=== PATIENT | female | born 1945 | race Caucasian/White ===

== ENCOUNTER → 2017-08-27 11:48 | Outpatient (CLI) | payer MEDICARE, SELFPAY ==
--- NOTE | 2017-08-27 11:58 | CT_ITS ---
STUDY: CT CHEST WITH CONTRAST REASON FOR EXAM: Female, 72 years old. Lung, breast cancer RADIATION DOSAGE (If Supplied By Facility): CTDIvol = ( 13.09 ) mGy, DLP = ( 477.10 ) mGycm TECHNIQUE: Transaxial imaging was performed following intravenous administration of 100 ml of Isovue 300 contrast material. Multiplanar coronal and sagittal images were reformatted. Individualized dose optimization techniques were used for this CT. COMPARISON: January 27, 2017 CT scan chest FINDINGS: The thyroid is enlarged and inhomogeneous similar to prior study. There is trace lower lobe atelectasis. There is no evidence of focal consolidation pleural effusion pulmonary edema and pneumothorax. There is no demonstrated pleural abnormality. Normal heart and pericardium. There is a cluster of small lymph nodes to the right of the trachea measuring up to 6.4 mm stable since prior study. Normal hilar regions. Normal enhanced pulmonary arteries. Normal aorta arch and descending thoracic aorta. There is increased kyphosis. There is degenerative change in the lumbar spine. There is postoperative change in the right breast soft tissues with surgical clips. There is surgical material in the left breast. There is similar appearing breast asymmetry. There is mild skin thickening similar to prior study. There is no demonstrated abnormality of the visualized upper abdomen. CT/Chest WITH Contrast IMPRESSION: No evidence of acute focal infiltrate or newly visualized mass. Enlarged inhomogeneous stable thyroid gland recommend follow-up thyroid ultrasound when appropriate. Kyphosis degenerative change of the thoracolumbar spine. Electronically Signed: Romi Shipman MD at 22:53 EST Tel , Service support ,
[2017-08-27 12:42] LABS: Absolute Lymphocyte Count 1.46 X10^3/ul (0.83-4.51); Absolute Neutrophil Count 2.6 X10^3/uL (2.0-7.7); Basophil# 0.01 X10^3/uL; Basophil% 0.2 % (0-1); Eosinophil# 0.05 X10^3/uL; Eosinophils% 1.1 % (0-5); Hemoglobin 13.1 g/dl (12.0-15.0); Lymphocyte # 1.46 X10^3/ul (4.0); Lymphocyte % 32.2 % (19-41); Mean Corpuscular Hgb 29.2 pg (27.0-32.0); Mean Corpuscular Volume 91.5 fL (81-99); Mean Platelet Vol. 10.7 fl (6.2-12.0); Monocyte# 0.39 X10^3/uL; Monocyte% 8.6 % (0-10); Neutrophil # 2.61 X10^3/uL (2.7-7.7); Neutrophil % 57.7 % (47-70); Platelet Count 206 K/mm3 (150-450); RBC Distribution Width CV 13.2 % (11.6-14.6); Red Blood Count 4.48 M/mm3 (4.2-5.4); White Blood Count 4.5 K/mm3 (4.4-11.0)
[2017-08-27 12:43] LABS: POSITIVE COUNT NO; POSITIVE DIFFERENTIAL NO; POSITIVE MORPHOLOGY NO
[2017-08-27 13:00] LABS: ALB/GLOB Ratio 0.9 RATIO (0.9-2.4); AST(SGOT) 16 U/L (15-37); Alanine Aminotransfer ALT/SGPT 23 U/L (12-78); Albumin, Serum 3.6 g/dL (3.4-5.0); Alkaline Phosphatase 96 U/L (45-117); Anion Gap 8 (5-15); BUN 22 mg/dL (7-18); BUN/Creat Ratio 34.4 RATIO (10-20); Calcium,Total 9.2 mg/dL (8.5-10.1); Chloride 106 mmol/L (98-107); Creatinine, Serum 0.64 mg/dL (0.55-1.02); EST Glomerular Filtration Rate 98 mL/min (>60); Est Glom Filt Rate - Afr Amer 118 mL/min (>60); Globulin 3.9 g/dL (2.2-4.2); Glucose 90 mg/dL (70-110); LDH 170 U/L (84-246); Potassium 4.1 mmol/L (3.5-5.1); Protein, Total 7.5 g/dL (6.4-8.2); Sodium Level 141 mmol/L (136-145)
== END ==
LOC: CT 11:50 → MEDOUTP 11:52
PROVIDERS: Family Provider Family Medicine; PCP Family Medicine; Visit Provider Internal Medicine Medical Oncology
DX: C50.411 Malignant neoplasm of upper-outer quadrant of right female breast (principal); C78.00 Secondary malignant neoplasm of unspecified lung
CPT/HCPCS: 71260; 80053; 83615; 85025; Q9967; A4216

== ENCOUNTER → 2017-08-30 14:16 | Outpatient (CLI) | payer MEDICARE, SELFPAY ==
--- NOTE | 2017-08-30 14:19 | RAD_ITS ---
STUDY: X-RAY - RIGHT KNEE REASON FOR EXAM: Female, 72 years old. Severe knee pain. Metastatic breast cancer. TECHNIQUE: 4 view(s) of the knee. COMPARISON: None. FINDINGS: Alignment is normal. No fracture or dislocation. Small marginal osteophytes medial compartment and posterior margin of the patella. No joint effusion. The soft tissue structures are unremarkable. RAD/Knee 4 or More Views IMPRESSION: Mild degenerative changes of the knee. Electronically Signed: Froylan Dent MD at 7:00 EST , Service support ,
--- NOTE | 2017-08-30 14:19 | RAD_ITS ---
STUDY: X-RAY - RIGHT FEMUR REASON FOR STUDY: Female, 72 years old. Severe knee pain. Metastatic breast cancer. TECHNIQUE: Radiological exam, femur, 4 images obtained. COMPARISON: None. FINDINGS: Alignment is normal. No fracture or dislocation. Marginal osteophytes medial compartment of the knee. Soft tissues unremarkable. RAD/Femur Min 2 Views IMPRESSION: No acute findings in the femur. Degenerative changes of the knee. Electronically Signed: Froylan Dent MD at 6:58 EST , Service support ,
== END ==
PROVIDERS: Family Provider Family Medicine; PCP Family Medicine; Visit Provider Family Medicine
DX: M25.561 Pain in right knee (principal)
CPT/HCPCS: 73552; 73564

== ENCOUNTER → 2018-03-07 | Outpatient (CLI) | payer MEDICARE, SELFPAY ==
[2017-09-09 13:03] VITALS: BP 129/77; BMI 32.2
--- NOTE | 2018-03-07 08:00 | CT_ITS ---
STUDY: CT CHEST WITH CONTRAST REASON FOR EXAM: Female, 72 years old. Malignant neoplasm. Bilateral breast cancer. RADIATION DOSAGE (If Supplied By Facility): CTDIvol = ( 11.38 ) mGy, DLP = ( 361.30 ) mGycm TECHNIQUE: Transaxial imaging was performed following intravenous administration of 100 ml of Isovue 300 contrast material. Multiplanar coronal and sagittal images were reformatted. Individualized dose optimization techniques were used for this CT. COMPARISON: August 27, 2017. FINDINGS: There is a right-sided Port-A-Cath. The lungs are hyperexpanded. There are scattered blebs. There is no mass or infiltrate. There is a minimal focus of pleural thickening and calcification seen laterally in the right upper lobe. Normal heart and pericardium. There are calcifications of the coronary arteries. There is mediastinal lymphadenopathy. The largest node in the precarinal space 1.8 x 1.3 x 1.4 cm. There is a mass in the posterior left hilum adjacent to the descending thoracic aorta, measuring 1.2 x 1.3 x 1.1 cm. Normal enhanced pulmonary arteries. There is mild atherosclerotic tortuosity of the thoracic aorta without aneurysm or dissection. Stable degenerative changes of the thoracic spine. There is no evidence of lytic or blastic lesion. There are surgical clips in both breast tissues with evidence of scarring. Again seen with enlarged thyroid with multiple hypodensities. There is no demonstrated abnormality of the visualized upper abdomen. CT/Chest WITH Contrast IMPRESSION: 1. No evidence of new pulmonary infiltrate or mass. 2. Stable mediastinal and left hilar lymphadenopathy. 3. No major change in findings when compared to the prior study. Electronically Signed: Mesfin Gaona DO at 19:01 EDT Tel [phone], Service support ,
[2018-03-07 08:10] LABS: CREATININE FINGERSTICK 0.9 mg/dL (0.55-1.02)
--- NOTE | 2018-03-07 08:45 | NURSING ---
ATTEMPTED TO DRAW OUTPATIENT LABS OFF OF PATIENT'S PORT, BUT UNABLE TO GET ENOUGH BLOOD RETURN EVEN AFTER SEVERAL FLUSHES.
[2018-03-07 09:02] LABS: Absolute Lymphocyte Count 1.16 X10^3/ul (0.83-4.51); Absolute Neutrophil Count 2.1 X10^3/uL (2.0-7.7); Basophil# 0.01 X10^3/uL; Basophil% 0.3 % (0-1); Eosinophil# 0.04 X10^3/uL; Eosinophils% 1.1 % (0-5); Hematocrit 40.6 % (37-47); Hemoglobin 12.9 g/dl (12.0-15.0); Lymphocyte # 1.16 X10^3/ul (4.0); Lymphocyte % 32.4 % (19-41); Mean Corp Hgb Conc 31.8 g/gl (32-36); Mean Corpuscular Hgb 29.3 pg (27.0-32.0); Mean Corpuscular Volume 92.1 fL (81-99); Mean Platelet Vol. 10.7 fl (6.2-12.0); Monocyte# 0.23 X10^3/uL; Monocyte% 6.4 % (0-10); Neutrophil # 2.14 X10^3/uL (2.7-7.7); Neutrophil % 59.8 % (47-70); Platelet Count 178 K/mm3 (150-450); RBC Distribution Width CV 13.1 % (11.6-14.6); RBC Distribution Width SD 44.2 fl (35.1-43.9); Red Blood Count 4.41 M/mm3 (4.2-5.4); White Blood Count 3.6 K/mm3 (4.4-11.0)
[2018-03-07 09:07] LABS: POSITIVE COUNT NO; POSITIVE DIFFERENTIAL NO; POSITIVE MORPHOLOGY NO
[2018-03-07 09:28] LABS: AST(SGOT) 18 U/L (15-37); Alanine Aminotransfer ALT/SGPT 17 U/L (13-56); Albumin, Serum 3.6 g/dL (3.2-5.0); Alkaline Phosphatase 87 U/L (45-117); Anion Gap 9 (5-15); BUN 24 mg/dL (7-18); BUN/Creat Ratio 30.6 RATIO (10-20); Calcium,Total 8.9 mg/dL (8.5-10.1); Chloride 105 mmol/L (98-107); Creatinine, Serum 0.78 mg/dL (0.55-1.02); EST Glomerular Filtration Rate 77 mL/min (>60); Est Glom Filt Rate - Afr Amer 93 mL/min (>60); Globulin 3.5 g/dL (2.2-4.2); Glucose 73 mg/dL (74-106); Potassium 3.9 mmol/L (3.5-5.1); Protein, Total 7.1 g/dL (6.4-8.2); Sodium Level 143 mmol/L (136-145); Thyroid Stim Hormone (TSH) 2.29 uIU/mL (0.358-3.74)
[2018-03-07 16:40] LABS: Xtra Tube EP Lab EXTRA TUBE
== END | disposition home or self-care (01) ==
PROVIDERS: Family Provider Family Medicine; PCP Family Medicine; Visit Provider Internal Medicine Medical Oncology
DX: C50.411 Malignant neoplasm of upper-outer quadrant of right female breast (principal); C50.912 Malignant neoplasm of unspecified site of left female breast; C78.00 Secondary malignant neoplasm of unspecified lung
CPT/HCPCS: 71260; 80053; 84443; 85025; Q9967; A4216

== ENCOUNTER → 2018-08-29 07:46 | Outpatient (CLI) | payer MEDICARE, SELFPAY ==
[2018-03-10 13:18] VITALS: BMI 30.7
--- NOTE | 2018-08-29 07:58 | CT_ITS ---
STUDY: CT CHEST WITH CONTRAST REASON FOR EXAM: Female, 73 years old. Breast cancer RADIATION DOSAGE (If Supplied By Facility): CTDIvol = ( 11.06 ) mGy, DLP = ( 322.14 ) mGycm TECHNIQUE: Transaxial imaging was performed following intravenous administration of 100 ml of Isovue 300 contrast material. Multiplanar coronal and sagittal images were reformatted. Individualized dose optimization techniques were used for this CT. COMPARISON: March 07, 2018. FINDINGS: There is port on the right extending to the superior vena cava. The thyroid gland is enlarged with multiple nodules. There is left upper lung granuloma. There is a noncalcified 0.3 cm left upper lobe nodule, series 4 image 33/124. There is 1.4 cm left hilar lymph node. There is no demonstrated pleural abnormality. There are calcifications of the coronary arteries. There is right lower paratracheal lymph node measuring 1.8 cm. There is AP window lymph node measuring 0.8 cm. Normal enhanced pulmonary arteries. There is atherosclerotic calcification of the aortic arch with tortuosity and elongation of the aortic arch and descending thoracic aorta. There are multi-level degenerative changes of the thoracic spine. There are healed left anterior rib fractures. There is postoperative change of the left breast. There is no demonstrated abnormality of the visualized upper abdomen. CT/Chest WITH Contrast IMPRESSION: Small left upper lobe nodule. Stable left upper lung granuloma. Stable enlarged mediastinal and left hilar lymph nodes. Electronically Signed: Keo Iglesias MD at 10:53 EST , Service support ,
== END ==
PROVIDERS: Family Provider Family Medicine; PCP Family Medicine; Referring Provider Internal Medicine Medical Oncology; Visit Provider Internal Medicine Medical Oncology
DX: C50.919 Malignant neoplasm of unspecified site of unspecified female breast (principal)
CPT/HCPCS: 71260; Q9967; A4216

== ENCOUNTER → 2019-03-02 11:29 | Outpatient (CLI) | payer MEDICARE, SELFPAY ==
[2018-10-10 13:30] VITALS: BMI 30.5
--- NOTE | 2019-03-02 11:30 | CT_ITS ---
STUDY: CT CHEST WITH CONTRAST REASON FOR EXAM: Female, 73 years old. Breast cancer. RADIATION DOSAGE (If Supplied By Facility): CTDIvol = ( 16.50 ) mGy, DLP = ( 1672.51 ) mGycm TECHNIQUE: Transaxial imaging was performed following intravenous administration of 100ML ml of Isovue 370 contrast material. Coronal and sagittal reformatted images were created. Individualized dose optimization techniques were used for this CT. COMPARISON: 08/29/2018 FINDINGS: There is a stable 3 mm nodule in the left upper lobe (image 29 series 6). There is a stable 4 mm nodule in the right upper lobe (image 36 series 6). There is a new 4 mm nodule in the right lower lobe (image 43 series 6). There are no pulmonary infiltrates or pleural effusions. There is no pneumothorax. The heart and pericardium are within normal limits. Again noted are coronary artery calcifications. There is a 1.2 cm left hilar lymph node which is slightly decreased in size when compared with the prior exam (image 56 series 2); previously 1.4 cm) There are stable hypodense nodules noted in the thyroid. There is no evidence of thoracic aortic aneurysm. There is new sclerosis in the right scapula which is suspicious for metastatic disease. There are stable postsurgical changes in the left breast. CT/Chest WITH Contrast IMPRESSION: New 4 mm nodule in the right lower lobe. This is indeterminate, but suspicious. Follow-up CT in 3-6 months is recommended. Additional stable subcentimeter pulmonary nodules. 1.2 cm left hilar lymph node which is slightly decreased in size when compared with the prior exam. New sclerosis in the right scapula which is suspicious for metastatic disease. If indicated, further evaluation with bone scan can be performed. Electronically Signed: Tyrell Dykes, at 15:24 EDT Tel , Service support ,
--- NOTE | 2019-03-02 11:30 | CT_ITS ---
STUDY: CT ABDOMEN AND PELVIS WITH CONTRAST REASON FOR EXAM: Female, 73 years old. Metastatic breast cancer. RADIATION DOSAGE (If Supplied By Facility): CTDIvol = ( 16.50 ) mGy, DLP = ( 1672.51 ) mGycm TECHNIQUE: Transaxial images were obtained from the dome of the diaphragm to the symphysis pubis with oral contrast. 75ML ml of Isovue 370 contrast was administered. Sagittal and coronal images were reconstructed. Individualized dose optimization techniques were used for this CT. COMPARISON: 08/11/2016 FINDINGS: There are no calcified gallstones present. The liver is within normal limits. There are no suspicious hepatic lesions. The spleen is normal in size. The pancreas is within normal limits. The adrenal glands are within normal limits. There are no renal or ureteral stones. There is no hydronephrosis. There is a stable cyst in the right kidney. Normal visualized stomach. There is no bowel obstruction or inflammation. There is a large amount of stool in the colon, consistent with constipation. The appendix is visualized and appears normal. The aorta is normal in caliber. There is no abdominal or pelvic free air, free fluid, fluid collection or lymphadenopathy. There are no destructive osseous lesions. CT/Abdomen/Pelvis WITH Contrast IMPRESSION: No evidence metastatic disease in the abdomen or pelvis. Constipation. Electronically Signed: Tyrell Dykes, at 15:30 EDT Tel , Service support ,
[2019-03-02 13:20] LABS: CREATININE FINGERSTICK < 0.6 mg/dL (0.55-1.02)
== END ==
PROVIDERS: Family Provider Family Medicine; PCP Family Medicine; Referring Provider Internal Medicine Medical Oncology; Visit Provider Internal Medicine Medical Oncology
DX: C50.411 Malignant neoplasm of upper-outer quadrant of right female breast (principal); C78.00 Secondary malignant neoplasm of unspecified lung; C79.81 Secondary malignant neoplasm of breast
CPT/HCPCS: 71260; 74177; Q9967